=== PATIENT | female | born 1985 | race Two or more races ===

== ENCOUNTER 2023-02-28 22:20 | Emergency (ER) | payer OTHER ==
[~2023-02-28] VITALS: Ht 175.3 cm; Wt 68.0 kg
[2023-02-28] MEDS ORDERED: HUMALOG100 UNIT/1 (22:34)
[2023-02-28] MEDS ORDERED: LANTUS SOL100 UNIT/1 (22:34)
== END 2023-03-01 00:12 | disposition home or self-care (01) ==
LOC: ER 22:20
DX: S63.282A Dislocation of proximal interphalangeal joint of right middle finger, initial encounter (principal); W19.XXXA Unspecified fall, initial encounter; Y93.E9 Activity, other interior property and clothing maintenance; Y92.89 Other specified places as the place of occurrence of the external cause; Y99.8 Other external cause status; M79.644 Pain in right finger(s)

== ENCOUNTER 2023-07-21 22:02 | Emergency (ER) | payer OTHER ==
[~2023-07-21] VITALS: Ht 170.2 cm; Wt 77.1 kg
[~2023-07-21 22:02] MED LIST: HUMALOG100 UNIT/1; LANTUS SOL100 UNIT/1
== END 2023-07-22 01:19 | disposition home or self-care (01) ==
LOC: ER 22:02
PROVIDERS: Emergency Medicine
DX: E11.43 Type 2 diabetes mellitus with diabetic autonomic (poly)neuropathy (principal); K31.84 Gastroparesis